=== PATIENT | male | born 1990 | race African-American/Black ===

== ENCOUNTER 2019-01-10 15:00 | Day surgery (SDC) | payer OTHER ==
[~2019-01-10] VITALS: Ht 195.6 cm; Wt 155.4 kg
[~2019-01-10 15:00] MED LIST: BUPIVACAINE LIPOSOME/PF 1.3%-13.3MG/ML SUSPENSION 20 ML VIAL INJ ONE; HEPARIN SODIUM,PORCINE 5,000 UNITS/ML VIAL ONE; RINGERS SOLUTION,LACTATED 1,000 ML IV ONE
[2019-01-10] MEDS ORDERED: SODIUM CHLORIDE 0.9% 10 ML ONE (15:01)
[2019-01-10] MEDS ORDERED: FentaNYL CITRATE-PF 100 MCG/2 ML VIAL IVP PRN (16:15)
[2019-01-10] MEDS ORDERED: HYDROmorphone 2 MG/ML SYRINGE IVP PRN (16:15)
[2019-01-10] MEDS ORDERED: MEPERIDINE-PF 25 MG/ML VIAL IVP PRN (16:15)
[2019-01-10] MEDS ORDERED: OXYGEN THERAPY IH SCH (20:00)
[2019-01-11] MEDS ORDERED: MIDAZOLAM HCL 2 MG/2 ML VIAL IVP ONE (05:07)
[2019-01-11] MEDS ORDERED: KETAMINE HCL 50 MG/ML 10 ML VIAL IVP ONE (05:07)
== END 2019-01-10 17:55 | disposition home or self-care (01) ==
LOC: EEVIPCON 15:00 → SURGERY 15:00
PROVIDERS: ATTEND Orthopaedic Surgery
DX: M25.562 Pain in left knee (principal); G47.33 Obstructive sleep apnea (adult) (pediatric); Z91.041 Radiographic dye allergy status
CPT/HCPCS: 20610; C9290; J1644; J2250; J3490